=== PATIENT | female | born 1975 | race Caucasian/White ===

== ENCOUNTER 2016-10-20 15:23 | Emergency (ER) | payer OTHER ==
[~2016-10-20] VITALS: Ht 165.1 cm; Wt 53.0 kg
[~2016-10-20 15:23] MED LIST: ALBU0.63 NEB; ALBU1AER INH; CLON1 PO; PRED10PA PO; XANA0.5T PO; ZOLO50TA PO
[2016-10-20 15:36] VITALS: BP 130/82; PULSE 83; RESP 16; TEMP 98.4; O2SAT 94
[2016-10-20] MEDS ORDERED: ALBUAER3 INH (15:50)
[2016-10-20] MEDS ORDERED: IPRASOL INH (15:50)
--- NOTE | 2016-10-20 15:54 | PD ---
HPI Chief Complaint: Respiratory Symptoms Time Seen by Provider: 15:41 Travel History International Travel<30 days: No Contact w/Intl Traveler<30days: No Traveled to known affect area: No History of Present Illness HPI The patient is a 41-year-old female who presents emergency department for shortness of breath, fever, and chills. The patient notes a 5-6 day history of a dry nonproductive cough, shortness of breath, fevers high as 103, and intermittent chills. The patient was seen 5 days ago at urgent care, was administered a Zithromax pack. The patient states she is on her last day of the Zithromax without any alleviation of her symptoms. The patient has also been using her inhaler, with increasing frequency over the last several days. The patient does have a history of asthma with several admissions in the past. The patient also continues to smoke approximately 7-8 cigarettes per day. The patient went back to urgent care earlier today and according to the patient they threatened to make her sign out AGAINST MEDICAL ADVICE if she did not come straight to the emergency department. The patient does have a primary physician , Dr. 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 The patient also complains of mild nasal congestion and URI symptoms, but denies any nausea, vomiting, diarrhea, or abdominal pain. The patient states they did perform an influenza test at the urgent care that was negative. PFSH Past Medical History Arthritis: No Asthma: Yes Autoimmune Disease: No Anxiety: Yes Depression: Yes Heart Rhythm Problems: No Cancer: No Cardiovascular Problems: No High Cholesterol: No Chemotherapy: No Chest Pain: Yes (not being able to breath-asthma chest tightness) Congestive Heart Failure: No COPD: Yes Cerebrovascular Accident: No Diabetes: No Diminished Hearing: No Endocrine: No GERD: No Genitourinary: No Headaches: Yes Hiatal Hernia: No Immune Disorder: No Kidney Stones: No Musculoskeletal: No Neurologic: No Psychiatric: Yes Reproductive: No Respiratory: Yes (asthma) Migraines: No Radiation Therapy: Yes Renal Failure: No Seizures: No Sickle Cell Disease: No Sleep Apnea: No Thyroid Disease: No Ulcer: No PNEUMOCCOCAL Vaccine (Year): 2 ?: Not LMP: 3 WEEKS : 1 Para: 1 Ectopic : No Ovarian Cysts: No Tubal Ligation: No Past Surgical History Abdominal Surgery: Yes AICD: No Appendectomy: Yes Arteriovenous Shunt: No Cardiac Surgery: No Section: Yes Ear Surgery: No Endocrine Surgery: No Eye Surgery: No Genitourinary Surgery: No Gynecologic Surgery: Yes Hysterectomy: No Insulin Pump: No Joint Replacement: No Oral Surgery: No Pacemaker: No Thoracic Surgery: No Other Surgery: Yes (appendix , c section) Social History Alcohol Use: Yes (RARE) Tobacco Use: Yes (1/2 ppd) Substance Use: Yes ([facility]) Allergies-Medications (Allergen,Severity, Reaction): Coded Allergies: Penicillin (Verified Allergy, Severe, UNKNOWN, 10/20/16) Sulfa (Verified Allergy, Severe, HIVES, 10/20/16) Reported Meds & Prescriptions Reported Meds & Active Scripts Active Reported Duoneb (Ipratropium-Albuterol Neb) 0.5-2.5 Mg/3 Ml Neb 1 Nebule INH Q4HR NEB Proair Hfa 8.5 GM Inh (Albuterol Sulfate) 90 Mcg/Act Aer 2 Puff INH Q4-6H PRN 108 mcg/actuation Review of Systems Except as stated in HPI: all other systems reviewed are Neg General / Constitutional: Positive: Fever, Chills HENT: Positive: Congestion Cardiovascular: No: Chest Pain or Discomfort Respiratory: Positive: Cough, Shortness of Breath, Wheezing Gastrointestinal: No: Nausea, Vomiting, Diarrhea, Abdominal Pain Genitourinary: No: Dysuria Musculoskeletal: No: Myalgias, Arthralgias Physical Exam Narrative GENERAL: Awake, alert, pleasant 41-year-old female who appears her stated age and is in no acute respiratory distress. SKIN: Focused skin assessment warm/dry. HEAD: Atraumatic. Normocephalic. EYES: No injection or drainage. ENT: No nasal bleeding or discharge. Mucous membranes pink and moist. NECK: Trachea midline. No JVD. CARDIOVASCULAR: Regular rate and rhythm. No murmur appreciated. Heart rate in the 80s. RESPIRATORY: No accessory muscle use. Coarse breath sounds in the bases with prolonged expiratory phase and wheezing.. GASTROINTESTINAL: Abdomen soft, non-tender, nondistended. No rebound tenderness. MUSCULOSKELETAL: No obvious deformities. No clubbing. No cyanosis. No edema. NEUROLOGICAL: Awake and alert. No obvious cranial nerve deficits. Motor grossly within normal limits. Normal speech. PSYCHIATRIC: Appropriate mood and affect; insight and judgment normal. Data Data Last Documented VS Vital Signs Date Time Temp Pulse Resp B/P Pulse Ox O2 Delivery O2 Flow Rate FiO2 10/20/16 16:15 95 Room Air 10/20/16 15:36 98.4 83 16 130/82 Orders Complete Blood Count With Diff (10/20/16 15:47) Basic Metabolic Panel (Bmp) (10/20/16 15:47) Iv Access Insert/Monitor (10/20/16 15:47) Ecg Monitoring (10/20/16 15:47) Oximetry (10/20/16 15:47) Oxygen Administration (10/20/16 15:47) Chest, Pa & Lat (10/20/16 15:47) Sodium Chloride 0.9% Flush (Ns Flush) (10/20/16 16:00) Methylprednisolone So Succ Inj (Solumedr (10/20/16 16:00) Albuterol-Ipratropium Neb (Duoneb Neb) (10/20/16 16:00) Lidocaine Pf 4% Neb (Lidocaine Pf 4% Neb (10/20/16 16:00) Sodium Chlor 0.9% 1000 Ml Inj (Ns 1000 M (10/20/16 16:00) Ketorolac Inj (Toradol Inj) (10/20/16 17:15) Labs Laboratory Tests Test 10/20/16 16:05 White Blood Count 13.1 TH/MM3 Red Blood Count 4.97 MIL/MM3 Hemoglobin 14.8 GM/DL Hematocrit 43.4 % Mean Corpuscular Volume 87.4 FL Mean Corpuscular Hemoglobin 29.8 PG Mean Corpuscular Hemoglobin 34.1 % Concent Red Cell Distribution Width 12.4 % Platelet Count 405 TH/MM3 Mean Platelet Volume 7.5 FL Neutrophils (%) (Auto) 61.4 % Lymphocytes (%) (Auto) 15.8 % Monocytes (%) (Auto) 12.5 % Eosinophils (%) (Auto) 9.8 % Basophils (%) (Auto) 0.5 % Neutrophils # (Auto) 8.0 TH/MM3 Lymphocytes # (Auto) 2.1 TH/MM3 Monocytes # (Auto) 1.6 TH/MM3 Eosinophils # (Auto) 1.3 TH/MM3 Basophils # (Auto) 0.1 TH/MM3 CBC Comment DIFF FINAL Differential Comment Sodium Level 138 MEQ/L Potassium Level 3.7 MEQ/L Chloride Level 104 MEQ/L Carbon Dioxide Level 23.3 MEQ/L Anion Gap 11 MEQ/L Blood Urea Nitrogen 13 MG/DL Creatinine 0.95 MG/DL Estimat Glomerular Filtration 65 ML/MIN Rate Random Glucose 89 MG/DL Calcium Level 9.2 MG/DL MDM Medical Decision Making Medical Screen Exam Complete: Yes Emergency Medical Condition: Yes Medical Record Reviewed: Yes Interpretation(s) Laboratory Tests Test 10/20/16 16:05 White Blood Count 13.1 TH/MM3 Red Blood Count 4.97 MIL/MM3 Hemoglobin 14.8 GM/DL Hematocrit 43.4 % Mean Corpuscular Volume 87.4 FL Mean Corpuscular Hemoglobin 29.8 PG Mean Corpuscular Hemoglobin 34.1 % Concent Red Cell Distribution Width 12.4 % Platelet Count 405 TH/MM3 Mean Platelet Volume 7.5 FL Neutrophils (%) (Auto) 61.4 % Lymphocytes (%) (Auto) 15.8 % Monocytes (%) (Auto) 12.5 % Eosinophils (%) (Auto) 9.8 % Basophils (%) (Auto) 0.5 % Neutrophils # (Auto) 8.0 TH/MM3 Lymphocytes # (Auto) 2.1 TH/MM3 Monocytes # (Auto) 1.6 TH/MM3 Eosinophils # (Auto) 1.3 TH/MM3 Basophils # (Auto) 0.1 TH/MM3 CBC Comment DIFF FINAL Differential Comment Sodium Level 138 MEQ/L Potassium Level 3.7 MEQ/L Chloride Level 104 MEQ/L Carbon Dioxide Level 23.3 MEQ/L Anion Gap 11 MEQ/L Blood Urea Nitrogen 13 MG/DL Creatinine 0.95 MG/DL Estimat Glomerular Filtration 65 ML/MIN Rate Random Glucose 89 MG/DL Calcium Level 9.2 MG/DL Last Impressions Chest X-Ray 10/20/16 1547 Signed Impressions: Service Date/Time: Thursday, October 20, 2016 16:23 - CONCLUSION: Hyperinflation. Alejo Dennis MD Differential Diagnosis Differential diagnosis includes bronchitis, pneumonia, asthma exacerbation, URI , pulmonary embolism, congestive heart failure. Narrative Course IV was established, labs are drawn and sent, and the patient was placed on cardiac telemetry monitoring and continuous pulse oximetry monitoring. The patient was administered Solu-Medrol 125 mg intravenously and duo nebs 3 with respiratory lidocaine. Chest x-ray was obtained. Chest x-ray reveals hyperinflation. The patient's symptoms improved with the duo nebs, however, she developed a headache. Therefore, the patient was administered Toradol 30 mg intravenously. The patient is advised to use duo nebs every 6 hours while awake at home and use albuterol nebulizers in between as needed. The patient states she has a nebulizer machine at home and has both the duo nebs and the albuterol nebulizers. The patient is requesting a refill for her albuterol inhaler. I advised her to stop smoking and to follow-up with her primary physician. The patient will also be provided a copy of her labs and chest x- ray results at discharge. Diagnosis Primary Impression: Asthma exacerbation Additional Impression: Bronchitis Patient Instructions: General Instructions Additional Instructions: Medications as directed. Stop smoking. Use your duo nebs every 6 hours while awake at home and albuterol nebulizers every 2 hours as needed. Follow-up with your primary physician. Please provide a patient a copy of her x-ray results and lab results at discharge. Med/Other Pt SpecificInfo: Prescription(s) given Scripts Albuterol 18 GM Inh (Ventolin Hfa 18 GM Inh)90 Mcg/Act Aer2 Puff INH Q4H PRN ( SHORTNESS OF BREATH) #1 INHALER Ref 0 Prov:Yamil Rosas MD 10/20/16 Prednisone (Deltasone)20 Mg Tab40 Mg PO DAILY 5 Days Ref 0 Prov:Yamil Rosas MD 10/20/16 Disposition: 01 DISCHARGE HOME Condition: Stable Yamil Rosas MD Oct 20, 2016 15:54
[2016-10-20] MEDS ORDERED: SODIUM CHLOR 0.9% 1000 ML INJ 1,000 ML IV ONE (16:00)
[2016-10-20] MEDS ORDERED: methylPREDNISolone SOD SUCC 125 MG/2 ML VIAL IVP ONE (16:00)
[2016-10-20] MEDS: RESP: ALBUTEROL 2.5 MG/IPRATROPIUM 0.5 MG NEB (SCH) INH (16:00)
[2016-10-20] MEDS ORDERED: RESP: LIDOCAINE HCL 4% PF 5 ML NEB NEB ONE (16:00)
[2016-10-20] MEDS ORDERED: SODIUM CHLORIDE 0.9% FLUSH 10 ML FLUSH IVF PRN (16:00)
[2016-10-20 16:15] VITALS: O2SAT 95
[2016-10-20 16:19] LABS: BASOPHIL # 0.1 TH/MM3 (0-0.2); BASOPHIL % 0.5 % (0.0-2.0); EOSINOPHIL # 1.3 TH/MM3 (0-0.4); EOSINOPHIL % 9.8 % (0.0-4.0); HEMATOCRIT 43.4 % (35.0-46.0); LYMPH % 15.8 % (9.0-44.0); LYMPHOCYTE # 2.1 TH/MM3 (1.0-4.8); MEAN CELL VOLUME 87.4 FL (80.0-100.0); MEAN CORPUSCULAR HEMOGLOBIN 29.8 PG (27.0-34.0); MEAN CORPUSCULAR HGB CONC 34.1 % (32.0-36.0); MONO % 12.5 % (0.0-8.0); NEUT % 61.4 % (16.0-70.0); PLATELET COUNT 405 TH/MM3 (150-450); RED BLOOD COUNT 4.97 MIL/MM3 (4.00-5.30); RED CELL DISTRIBUTION WIDTH 12.4 % (11.6-17.2); WHITE BLOOD COUNT 13.1 TH/MM3 (4.0-11.0)
[2016-10-20 16:21] LABS: HEMO FLAGS DIFF FINAL
[2016-10-20 16:35] LABS: POTASSIUM 3.7 MEQ/L (3.5-5.1)
[2016-10-20 16:38] LABS: BICARBONATE 23.3 MEQ/L (21.0-32.0)
--- NOTE | 2016-10-20 16:55 | RADHPO ---
EXAM DATE/TIME: 10/20/2016 16:23 [facility] COMPARISON: No previous studies available for comparison. INDICATIONS : Chest pain and short of breath. MEDICAL HISTORY : Asthma. SURGICAL HISTORY : None. ENCOUNTER: Initial ACUITY: 4 - 6 days PAIN SCORE: 4/10 LOCATION: Bilateral chest FINDINGS: PA and lateral views of the chest demonstrate the lungs to be symmetrically aerated without evidence of mass, infiltrate or effusion. The cardiomediastinal contours are unremarkable. Osseous structure s are intact. CONCLUSION: Hyperinflation. Alejo Dennis MD on October 20, 2016 at 16:54 Board Certified Radiologist. This report was verified electronically.
[2016-10-20] MEDS ORDERED: KETOROLAC TROMETHAMINE 30 MG/ML (IVP) VIAL IV PUSH ONE (17:15)
[2016-10-20] MEDS ORDERED: VENTAER INH (17:29)
[2016-10-20] MEDS ORDERED: PRED-503 PO (17:29)
[2016-10-20 17:44] VITALS: BP 122/80
== END 2016-10-20 17:46 | disposition home or self-care (01) ==
LOC: PHED 15:23
DX: J45.901 Unspecified asthma with (acute) exacerbation (principal); F17.210 Nicotine dependence, cigarettes, uncomplicated; J44.9 Chronic obstructive pulmonary disease, unspecified
CPT/HCPCS: 71020; 80048; 85025; 94640; 94664; 96361; 96374; 96375; 99283; J1885; J2930; J7030

== ENCOUNTER 2017-11-14 15:58 | Emergency (ER) | payer OTHER ==
[2017-11-14] MEDS ORDERED: RESP: ALBUTEROL 2.5 MG/IPRATROPIUM 0.5 MG NEB (SCH) (16:13)
[2017-11-14] MEDS ORDERED: SODIUM CHLORIDE 0.9% FLUSH 10 ML FLUSH IVF (16:15)
[2017-11-14] MEDS: methylPREDNISolone SOD SUCC 125 MG/2 ML VIAL IV PUSH (16:15)
[2017-11-14] MEDS: RESP: ALBUTEROL 2.5 MG/IPRATROPIUM 0.5 MG NEB (SCH) INH ×3 (16:25→16:28)
[2017-11-14 16:56] LABS: AUTOMATED NEUTROPHIL # 17.4 TH/MM3 (1.8-7.7); BASOPHIL # 0.1 TH/MM3 (0-0.2); BASOPHIL % 0.4 % (0.0-2.0); EOSINOPHIL # 0.4 TH/MM3 (0-0.4); HEMATOCRIT 44.5 % (35.0-46.0); HEMO FLAGS DIFF FINAL; LYMPH % 3.2 % (9.0-44.0); LYMPHOCYTE # 0.6 TH/MM3 (1.0-4.8); MEAN CELL VOLUME 89.5 FL (80.0-100.0); MEAN CORPUSCULAR HEMOGLOBIN 30.1 PG (27.0-34.0); MEAN CORPUSCULAR HGB CONC 33.6 % (32.0-36.0); MEAN PLATELET VOLUME 8.1 FL (7.0-11.0); MONO % 1.4 % (0.0-8.0); MONOCYTE # 0.3 TH/MM3 (0-0.9); PLATELET COUNT 386 TH/MM3 (150-450); RED BLOOD COUNT 4.97 MIL/MM3 (4.00-5.30); RED CELL DISTRIBUTION WIDTH 13.1 % (11.6-17.2); WHITE BLOOD COUNT 18.8 TH/MM3 (4.0-11.0)
[2017-11-14 17:04] LABS: CHLORIDE 105 MEQ/L (98-107); POTASSIUM 3.8 MEQ/L (3.5-5.1); SODIUM (NA) 135 MEQ/L (136-145)
[2017-11-14 17:06] LABS: CALCIUM 9.3 MG/DL (8.5-10.1)
[2017-11-14 17:07] LABS: ANION GAP 6 MEQ/L (5-15); BICARBONATE 24.1 MEQ/L (21.0-32.0); BLOOD UREA NITROGEN 11 MG/DL (7-18); GLUCOSE,RANDOM 145 MG/DL (74-106)
[2017-11-14 17:10] LABS: GLOMERULAR FILTRATION RATE 61 ML/MIN (>89)
== END 2017-11-14 18:19 | disposition left against medical advice (07) ==
LOC: PHED 15:58
DX: J96.01 Acute respiratory failure with hypoxia (principal); J45.901 Unspecified asthma with (acute) exacerbation; J44.9 Chronic obstructive pulmonary disease, unspecified; F41.9 Anxiety disorder, unspecified; F32.9 Major depressive disorder, single episode, unspecified; F17.200 Nicotine dependence, unspecified, uncomplicated; Z53.20 Procedure and treatment not carried out because of patient's decision for unspecified reasons
CPT/HCPCS: 71045; 80048; 85025; 94640; 94664; 96374; 99285-25